=== PATIENT | male | born 1940 | race Caucasian/White ===

== ENCOUNTER → 2016-07-24 | Outpatient (CLI) | payer MEDICARE, OTHER ==
[~2016-07-24] MED LIST: REGADENOSON 0.4 MG/5 ML DISP.SYRIN. IV ONE
--- NOTE | 2016-07-24 15:11 | RAD ---
APPROVED REPORT Test Type: Pharmacological Stress Nurse/Tech: RT Wiliam (R) (N) Test Indications: Chest pain Cardiac History: No known cardiac Medical History: See Electronic Medical Record Resting Heart Rate: 54 bpm Resting Blood Pressure: 125/78mmHg Pretest Chest Pain: None Nurse/Tech Notes lungs cta, heart tones regular, good radial pulse POST EXERCISE Target HR: No Max HR: 95 bpm Max Blood Pressure: 136/87mmHg Blood Pressure response to exercise: Normal blood pressure response during stress. Heart Rate response to exercise: Normal Chest Pain: No. Arrhythmia: No. ST Change: No. INTERPRETATION Stress EKG Conclusion: The resting EKG shows sinus rhythm with slight nonspecific ST-T wave changes. The stress EKG shows no significant changes from baseline. No EKG evidence of stress-induced ischemia. Imaging Protocol IMAGE PROTOCOL: Rest Tc-99m/stress Tc-99m 1 day Rest: Stress: Viability: Radiopharm.Tc99m BiydrndrpNe77w Sestamibi Dose12.4mCi 33.4mCi Duration 15min. 10min. Img Date 07/24/2016 07/24/2016 Inj-Img Cled97iwu. 60min. Rest Admin Site:IV - Left AntecubitalAdministrator:RT Wiliam (Maliha)(N) Stress Admin Site: IV - Left AntecubitalAdministrator: RT Wiliam (R)(N) STRESS DATA End Diast. Vol.92.0mlAv. Heart Rate65.0bpm End Syst. Vol.30.0mlCO Index BSA4.1L/min Myocardial Grlw426.0gEject. Gclandhj85.0% Stress Rates Pk. Fill Rate2.62EDV/secLVtime Pk. Fill 134.38msec Pk. Empty Rate3.73ESV/secLVtime Pk. Lvgbj838.25msec 04/18 Pk. Fill1.74EDV/sec Stress Scores Regional WT0.00Summed WT2.00 Regional WM0.00Summed WM0.00 LV Perfusion The stress scans showed no significant defects. The rest scans showed no significant defects. Nuclear imaging shows no reversible ischemia or infarct. Wall Motion Normal left ventricular systolic function with an ejection fraction of 67%. LV Perf. Quant 17 Seg. SSS1.00 17 Seg. SRS0.00 17 Seg. SDS1.00 Stress Defect Extent (% LAD)0.00Rest Defect Extent (% LAD)0.00Rev. Defect Extent (% LAD)0.00 Stress Defect Extent (% LCX) 0.00Rest Defect Extent (% LCX)10.00Rev. Defect Extent (% LCX)0.00 Stress Defect Extent (% RCA)0.00Rest Defect Extent (% RCA)0.00Rev. Defect Extent (% RCA)0.00 Stress Defect Extent (% NINFA)0.00Rest Defect Extent (% NINFA)2.00Rev. Defect Extent (% NINFA)0.00 Conclusion 1. No EKG evidence of stress-induced ischemia. 2. Nuclear imaging shows no reversible ischemia or infarct. 3. Normal left ventricular systolic function with ejection fraction of 67% 4. Low risk Lexiscan nuclear stress test.
--- NOTE | 2016-07-24 17:03 | CARD ---
APPROVED REPORT EXAM: Two-dimensional and M-mode echocardiogram with Doppler and color Doppler. Other Information Quality : Average Rhythm : NSR INDICATION Chest Pain 2D DIMENSIONS RVDd2.8 (2.9-3.5cm)Left Atrium(2D)3.7 (1.6-4.0cm) IVSd1.2 (0.7-1.1cm)Aortic Root(2D)3.3 (2.0-3.7cm) LVDd4.9 (3.9-5.9cm)LVOT Diameter2.3 (1.8-2.4cm) PWd1.1 (0.7-1.1cm)LVDs2.8 (2.5-4.0cm) FS (%) 33.2 %SV83.9 ml LVEF(%)64.2 (>50%) Aortic Valve AoV [place].235.1cm/sAoV VTI53.1cm AO Peak GR.34.0mmHgLVOT [place].84.7cm/s LVOT VTI 23.30cmAO Mean GR.17mmHg SUDHA (VMAX)1.50ia6TOP (VTI)1.40cm2 AI P 1/2 Toth784il Mitral Valve MV E Djyrqxzg53.8cm/sMV DECEL ECYM030cb MV A Izwksjot93.4cm/sMV E Mean Gr.1mmHg MV CUC62qsT/A Ratio0.7 MV A Yuuadtif604tbQTI (PHT)2.67cm2 TDI E/Lateral E'7.3E/Medial E'9.7 Pulmonary Valve PV Peak Ilhsatuc788.7cm/sPV Peak Grad.7mmHg RVOT VTI19.0cm Tricuspid Valve TR P. Bpmczeyi852qn/sRAP LUMRDUZP5wmDo TR Peak Gr.96cgPnMUJL83srWe Pulmonary Vein S1 Qhgiogjv02.2cm/sD2 Dcaopyid80.0cm/s LEFT VENTRICLE The left ventricle is normal size. There is normal left ventricular wall thickness. Left ventricle sy stolic function is normal. The Ejection Fraction is 55--60%. There is normal LV segmental wall motion . Tissue Doppler imaging reveals mild left ventricular diastolic dysfunction. RIGHT VENTRICLE The right ventricle is normal size. The right ventricular systolic function is normal. ATRIA The left atrium size is normal. The right atrium size is normal. The interatrial septum is intact wit h no evidence for an atrial septal defect or patent foramen ovale as noted on 2-D or Doppler imaging. AORTIC VALVE The aortic valve is moderately calcified and displays decreased opening. Doppler and Color Flow revea led trace to mild aortic regurgitation. Calculated aortic valve area is 1.4 cm2 with maximum pressure gradient of 34 mmHg and mean pressure gradient of 17 mmHg. Doppler and color-flow analysis revealed mild to moderate aortic stenosis. MITRAL VALVE The mitral valve is normal in structure and function. There is no mitral valve stenosis. Doppler and Color Flow revealed trace mitral regurgitation. TRICUSPID VALVE The tricuspid valve is normal in structure and function. Doppler and Color Flow revealed trace to mil d tricuspid regurgitation. The PA pressure was estimated at 25 mmHg. There is no tricuspid valve sten osis. PULMONIC VALVE The pulmonic valve is not well visualized. Doppler and Color Flow revealed no pulmonic valvular regur gitation. There is no pulmonic valvular stenosis. GREAT VESSELS The aortic root is normal in size. Normal pulmonary venous flow (Doppler). The IVC is normal in size and collapses >50% with inspiration. PERICARDIAL EFFUSION There is no evidence of significant pericardial effusion. Critical Notification Critical Value: No <Conclusion> The left ventricle is normal size. Left ventricle systolic function is normal. The Ejection Fraction is 55--60%. Calculated aortic valve area is 1.4 cm2 with maximum pressure gradient of 34 mmHg and mean pressure g radient of 17 mmHg. Doppler and color-flow analysis revealed mild to moderate aortic stenosis. Doppler and Color Flow revealed trace to mild aortic regurgitation. Doppler and Color Flow revealed trace mitral regurgitation. Doppler and Color Flow revealed trace to mild tricuspid regurgitation. The PA pressure was estimated at 25 mmHg.
== END | disposition home or self-care (01) ==
LOC: ECHO 07:33
PROVIDERS: ATTEND Internal Medicine Cardiovascular Disease
DX: R07.9 Chest pain, unspecified (principal); I08.3 Combined rheumatic disorders of mitral, aortic and tricuspid valves
CPT/HCPCS: 78452; 93017; 93306; 96374; 96375; 96376; A9500; J2785

== ENCOUNTER → 2017-09-18 | Outpatient (CLI) | payer MEDICARE, OTHER | END | disposition home or self-care (01) | LOC: ECHO 10:32 | DX: I35.1 Nonrheumatic aortic (valve) insufficiency (principal) | CPT/HCPCS: 93306 ==

== ENCOUNTER → 2018-09-18 | Outpatient (CLI) | payer MEDICARE, OTHER ==
--- NOTE | 2018-09-18 14:39 | CARD ---
MR#: [id number] Date of Study: 09/18/2018 Ordering Physician: INGRID GALLAGHER, Referring Physician: INGRID GALLAGHER, Tech: Jami Ramirez APPROVED REPORT EXAM: Two-dimensional and M-mode echocardiogram with Doppler and color Doppler. Other Information Quality : AverageHR: 58bpm INDICATION Aortic Valve Disease Nonrheumatic aortic valve RISK FACTORS Hypertension 2D DIMENSIONS RVDd2.8 (2.9-3.5cm)Left Atrium(2D)3.7 (1.6-4.0cm) IVSd1.2 (0.7-1.1cm)LVDd5.2 (3.9-5.9cm) LVOT Diameter2.3 (1.8-2.4cm)PWd1.2 (0.7-1.1cm) LVDs2.9 (2.5-4.0cm) Aortic Valve AoV [place].231.1cm/sAoV VTI60.2cm AO Peak GR.21.4mmHgLVOT [place].92.5cm/s LVOT VTI 27.82cmAO Mean GR.14mmHg AI P 1/2 Dyva425rt Mitral Valve MV E Ksfttpfy26.8cm/sMV DECEL XWQJ110xx MV A Ipdqukgk74.5cm/sMV IYJ52gj E/A Ratio0.8MVA (PHT)4.22cm2 TDI E/Lateral E'9.0E/Medial E'10.2 Pulmonary Valve PV Peak Mpndeakm470.3cm/sPV Peak Grad.9mmHg Tricuspid Valve TR P. Wnafbtcy606se/sRAP PPMHEPTW8clBz TR Peak Gr.71ieRyWDBQ39nrQm Pulmonary Vein S1 Wesikfnd40.8cm/sD2 Svponcjy49.8cm/s PVa wshfulgf085qduj LEFT VENTRICLE The left ventricle is normal size. There is mild concentric left ventricular hypertrophy. The left ve ntricular systolic function is normal. The Ejection Fraction is 55%. There is normal LV segmental wal l motion. Transmitral Doppler flow pattern is Grade I-abnormal relaxation pattern. RIGHT VENTRICLE The right ventricle is normal size. There is normal right ventricular wall thickness. The right ventr icular systolic function is normal. ATRIA The left atrium size is normal. The right atrium size is normal. The interatrial septum is intact wit h no evidence for an atrial septal defect or patent foramen ovale as noted on 2-D or Doppler imaging. AORTIC VALVE The aortic valve is thickened but opens well. Doppler and Color Flow revealed mild aortic regurgitati on. Calculated aortic valve area is 1.6 cm2 with maximum pressure gradient of 23 mmHg and mean pressu re gradient of 14 mmHg. MITRAL VALVE The mitral valve is normal in structure and function. There is no evidence of mitral valve prolapse. There is no mitral valve stenosis. Doppler and Color Flow revealed trace mitral valve regurgitation. TRICUSPID VALVE The tricuspid valve is normal in structure and function. Doppler and Color Flow revealed trace tricus pid regurgitation with an estimated PAP of 36 mmHg. There is no tricuspid valve stenosis. PULMONIC VALVE The pulmonary valve is normal in structure and function. Doppler and Color Flow revealed trace pulmon ic valvular regurgitation. GREAT VESSELS The aortic root is normal in size. The IVC was not well visualized. PERICARDIAL EFFUSION There is no evidence of significant pericardial effusion. Critical Notification Critical Value: No <Conclusion> The left ventricular systolic function is normal. The Ejection Fraction is 55%. There is normal LV segmental wall motion. Transmitral Doppler flow pattern is Grade I-abnormal relaxation pattern. Mild aortic regurgitation. Trace mitral valve regurgitation. Trace tricuspid regurgitation with an estimated PAP of 36 mmHg. There is no evidence of significant pericardial effusion. Signed by : Ingrid Gallagher, Electronically Approved : 09/18/2018 14:38:20
== END | disposition home or self-care (01) ==
LOC: ECHO 12:36
PROVIDERS: ATTEND Internal Medicine Cardiovascular Disease
DX: I35.1 Nonrheumatic aortic (valve) insufficiency (principal); I11.9 Hypertensive heart disease without heart failure
CPT/HCPCS: 93306

== ENCOUNTER → 2018-10-15 | Outpatient (CLI) | payer MEDICARE, OTHER ==
--- NOTE | 2018-10-15 09:11 | RAD ---
MR#: [id number] Date of Study: 10/15/2018 Ordering Physician: INGRID ROACH, Referring Physician: INGRID ROACH, Tech: Richard Sánchez, SABA, RDMS, RVT, RDCS, RTR APPROVED REPORT Patient Location : OUT-PATIENT Indications Lower Extremity Edema : Bilateral Findings Grayscale images of the bilateral saphenofemoral junctions do not reveal any obvious evidence of thro mbus. The right great saphenous vein measures 5.3 mm in the left great saphenous vein measures 5.9 mm. Bilateral greater saphenous veins do not show any evidence of reflux on spectral and color Doppler im aging. Similarly, the bilateral lesser saphenous veins do not show any evidence of reflux. Critical Notification Critical Value: No <Conclusion> No reflux in the bilateral greater and lesser saphenous veins. Signed by : Sagar Araiza, Electronically Approved : 10/15/2018 09:10:26
--- NOTE | 2018-10-15 10:58 | RAD ---
MR#: [id number] Date of Study: 10/15/2018 Ordering Physician: INGRID ROACH Referring Physician: KATELIN BLOUNT Tech: RT Sergio (Maliha) (N) APPROVED REPORT Test Type: Pharmacological Stress Nurse/Tech: Gilda Sanchez R.N. Test Indications: c/p Cardiac History: leaky valve Medications: See Electronic Medical Record Medical History: See Electronic Medical Record Resting ECG: SB Resting Heart Rate: 47 bpm Resting Blood Pressure: 120/56mmHg Pretest Chest Pain: No chest pain Nurse/Tech Notes S1S2, murmur, lungs CTA Consent: The procedure was explained to the patient in lay terms. Informed consent was witnessed. Ramone eout was entered into [employer]. History and Stress Test performed by AYESHA [facility]. Details Pharmacologic stress testing was performed using 0.4mg per 5ml of regadenoson given intravenously ove r 7-10 seconds. Stress Symptoms slight SOB, weird feeling POST EXERCISE Reason for Termination: Infusion complete Max HR: 73 bpm Max Blood Pressure: 128/73mmHg Blood Pressure response to exercise: Normal blood pressure response during stress. Heart Rate response to exercise: wnl Chest Pain: No. Arrhythmia: No. ST Change: No. INTERPRETATION Stress EKG Conclusion: No evidence of stress induced EKG changes. Imaging Protocol IMAGE PROTOCOL: Rest Tc-99m/stress Tc-99m 1 day Rest: Stress: Viability: Radiopharm.Tc99m RqttfurtkUr16b Sestamibi Suca94kIv 33mCi Duration 15min. 10min. Img Date 10/15/2018 10/15/2018 Inj-Img Pxhg03vwn. 60min. Rest Admin Site:IV - Right AntecubitalAdministrator:AYESHA Shaffer Stress Admin Site: IV - Right AntecubitalAdministrator: AYESHA Shaffer STRESS DATA End Diast. Vol.106.0mlAv. Heart Rate58.0bpm End Syst. Vol.26.0mlCO Index BSA0.0L/min Myocardial Wyly268.0gEject. Fjdtubrx20.0% Stress Rates Pk. Fill Rate2.79EDV/secLVtime Pk. Fill 198.35msec Pk. Empty Rate3.09ESV/secLVtime Pk. Kwsic637.20msec 04/18 Pk. Fill1.19EDV/sec Stress Scores Regional WT0.00Summed WT0.00 Regional WM0.00Summed WM0.00 The rest and stress images show normal perfusion, normal contraction and thickening. LV Perf. Quant 17 Seg. SSS0.00 17 Seg. SRS0.00 17 Seg. SDS0.00 Stress Defect Extent (% LAD)0.00Rest Defect Extent (% LAD)0.00Rev. Defect Extent (% LAD)0.00 Stress Defect Extent (% LCX) 0.00Rest Defect Extent (% LCX)0.00Rev. Defect Extent (% LCX)0.00 Stress Defect Extent (% RCA)0.00Rest Defect Extent (% RCA)0.00Rev. Defect Extent (% RCA)0.00 Stress Defect Extent (% NINFA)0.00Rest Defect Extent (% NINFA)0.00Rev. Defect Extent (% NINFA)0.00 Other Information Quality:Good Risk Assessment: Low Risk Conclusion 1. No evidence of EKG changes with stress testing. 2. Normal perfusion at stress/rest. 3. Low risk study. 4. EF > 60%. Signed by : Sagar Araiza, Electronically Approved : 10/15/2018 10:58:03
== END | disposition home or self-care (01) ==
LOC: US 07:24
PROVIDERS: ATTEND Internal Medicine Cardiovascular Disease
DX: R60.0 Localized edema (principal); R07.9 Chest pain, unspecified
CPT/HCPCS: 78452; 93017; 93970; A9500; J2785

== ENCOUNTER → 2019-10-22 | Outpatient (CLI) | payer MEDICARE, OTHER ==
--- NOTE | 2019-10-22 12:28 | CARD ---
MR#: [id number] Date of Study: 10/22/2019 Ordering Physician: INGRID ROACH, Referring Physician: INGRID ROACH Tech: Beatrice Del Real RDCS APPROVED REPORT EXAM: Two-dimensional and M-mode echocardiogram with Doppler and color Doppler. Other Information Quality : Good INDICATION Peripheral Edema 2D DIMENSIONS RVDd3.4 (2.9-3.5cm)Left Atrium(2D)3.7 (1.6-4.0cm) IVSd1.3 (0.7-1.1cm)Aortic Root(2D)3.5 (2.0-3.7cm) LVDd4.9 (3.9-5.9cm)LVOT Diameter2.5 (1.8-2.4cm) PWd1.1 (0.7-1.1cm)LVDs2.8 (2.5-4.0cm) FS (%) 42.3 %SV83.3 ml LVEF(%)60.0 (>50%) Aortic Valve AoV [place].234.0cm/sAoV VTI54.6cm AO Peak GR.21.9mmHgLVOT [place].80.1cm/s AO Mean GR.15mmHgAVA (VMAX)1.65cm2 SUDHA (VTI)1.87aq0KG P 1/2 Aaxm485hh Mitral Valve MV E Vpvawwqe29.3cm/sMV DECEL ODCF687au MV A Yircaani11.8cm/sE/A Ratio0.6 Tricuspid Valve TR P. Sqdocivf509fd/sRAP BVIYARKM8drZj TR Peak Gr.81zwEjLHBV19wgSt Pulmonary Vein S1 Hvdygzue47.1cm/sD2 Nkzjisib87.4cm/s LEFT VENTRICLE The left ventricle is normal size. There is mild concentric left ventricular hypertrophy. The left ve ntricular systolic function is normal and the ejection fraction is within normal range. The Ejection Fraction is 55-60%. There is normal LV segmental wall motion. Transmitral Doppler flow pattern is [place] I-abnormal relaxation pattern. RIGHT VENTRICLE The right ventricle is normal size. The right ventricular systolic function is normal. ATRIA The left atrium size is normal. The right atrium size is normal. The interatrial septum is intact wit h no evidence for an atrial septal defect or patent foramen ovale as noted on 2-D or Doppler imaging. AORTIC VALVE The aortic valve is moderately to severely calcified and displays decreased opening. Doppler and [place] r Flow revealed trace to mild aortic regurgitation. Calculated aortic valve area is 1.7 cm2 with maxi mum pressure gradient of 22 mmHg and mean pressure gradient of 15 mmHg. Doppler and color-flow analys is revealed mild aortic stenosis. MITRAL VALVE The mitral valve is normal in structure and function. There is no evidence of mitral valve prolapse. There is no mitral valve stenosis. Doppler and Color Flow revealed no mitral valve regurgitation note d. TRICUSPID VALVE The tricuspid valve is normal in structure and function. Doppler and Color Flow revealed trace tricus pid regurgitation. The PA pressure was estimated at 24 mmHg. There is no tricuspid valve stenosis. PULMONIC VALVE The pulmonic valve is not well visualized. Doppler and Color Flow revealed trace to mild pulmonic ronn vular regurgitation. There is no pulmonic valvular stenosis. GREAT VESSELS The aortic root is normal in size. The ascending aorta is mildly dilated at 3.5 cm. The IVC is normal in size and collapses >50% with inspiration. PERICARDIAL EFFUSION There is no evidence of significant pericardial effusion. Critical Notification Critical Value: No <Conclusion> The left ventricular systolic function is normal and the ejection fraction is within normal range. Th e Ejection Fraction is 55-60%. There is normal LV segmental wall motion. The aortic valve is moderately to severely calcified and displays decreased opening. Calculated aortic valve area is 1.7 cm2 with maximum pressure gradient of 22 mmHg and mean pressure g radient of 15 mmHg. Doppler and color-flow analysis revealed mild aortic stenosis. *Consider low flow low gradient . The ascending aorta is mildly dilated at 3.5 cm. Signed by : Sagar Araiza, Electronically Approved : 10/22/2019 12:28:20
== END | disposition home or self-care (01) ==
LOC: ECHO 10:30
PROVIDERS: ATTEND Internal Medicine Cardiovascular Disease
DX: I08.8 Other rheumatic multiple valve diseases (principal)
CPT/HCPCS: 93306

== ENCOUNTER → 2021-01-24 | Outpatient (CLI) | payer MEDICARE, OTHER ==
--- NOTE | 2021-01-24 09:28 | RAD ---
US HEAD/NECK SOFT TISSUE History: Palpable lump Comparison: None. Technique: Multiple grayscale and color Doppler images of the area of concern in the neck/face were o btained. Findings: In the area of concern anterior to the right ear, there is an ovoid anechoic cyst measuring 1.9 x 0.8 x 0.8 cm. No color Doppler flow within the cyst. No significant adjacent hyperemia. A trac t to the skin is not well identified. IMPRESSION: 1. Benign simple fluid containing cyst in the area of palpable concern anterior to the right ear. Electronically signed by: Zeyad Campbell MD (01/24/2021 9:25 AM) [id number]
== END ==
LOC: US 08:26
PROVIDERS: ATTEND Family Medicine
DX: R22.1 Localized swelling, mass and lump, neck (principal)
CPT/HCPCS: 76536